=== PATIENT | male | born 2000 | race Caucasian/White ===

== ENCOUNTER 2023-07-15 11:55 | Emergency (ER) | payer OTHER ==
[~2023-07-15] VITALS: Ht 172.7 cm; Wt 77.7 kg
[2023-07-15 11:58] VITALS: BP 145/76; TEMP 98.5; O2SAT 98
[2023-07-15] MEDS: LIDOCAINE 2% MDV 20ML VIAL SC ONE (12:59)
[2023-07-15] MEDS: BACITRACIN OINTMENT 30GM TUBE TOP STA (13:16)
== END 2023-07-15 13:25 | disposition home or self-care (01) ==
LOC: M ED 11:55
DX: S61.216A Laceration without foreign body of right little finger without damage to nail, initial encounter (principal); W25.XXXA Contact with sharp glass, initial encounter; Y92.009 Unspecified place in unspecified non-institutional (private) residence as the place of occurrence of the external cause; Y93.89 Activity, other specified; Y99.9 Unspecified external cause status